=== PATIENT | male | born 1955 | race African-American/Black ===

== ENCOUNTER 2022-12-07 06:44 | Emergency (ER) | payer BC, MEDICARE ==
[~2022-12-07] VITALS: Ht 185.4 cm; Wt 89.0 kg
[2022-12-07 10:13] LABS: BASOPHILS % 0.3 % (0.0-2.0); EOSINOPHILS % 0.2 % (0.0-5.0); HEMOGLOBIN. 16.3 g/dL (14.0-18.0); LYMPHOCYTES % 29.7 % (20.0-50.0); MEAN CORPUSCULAR HEMOGLOBIN 31.3 pg (28.0-32.0); MEAN CORPUSCULAR VOLUME 94.1 fL (80.0-94.0); MEAN PLATELET VOLUME 9.2 fl (7.4-10.4); MONOCYTES % 6.6 % (2.0-8.0); NEUTROPHILS % 63.2 % (40.0-76.0); PLATELET 177 x1000/uL (130-400); RED CELL DISTRIBUTION WIDTH 13.9 % (11.6-14.6)
[2022-12-07 10:24] LABS: CHLORIDE 107 mEq/L (98-107)
[2022-12-07] MEDS ORDERED: IOHEXOL-350 100 ML BOTTLE ONE (13:51)
[2022-12-07 14:47] VITALS: BP 120/73
== END 2022-12-07 15:18 | disposition home or self-care (01) ==
LOC: ER 06:44
DX: R07.89 Other chest pain (principal); R51.9 Headache, unspecified; I10 Essential (primary) hypertension
CPT/HCPCS: 36415; 71045; 71275; 80053; 83690; 84484; 85025; 85379; 93005; 99285; Q9967